=== PATIENT | female | born 1990 | race African-American/Black ===

== ENCOUNTER 2022-09-22 18:55 | Emergency (ER) | payer MEDICAID, OTHER ==
[~2022-09-22] VITALS: Ht 167.6 cm; Wt 85.0 kg
[2022-09-22 19:19] VITALS: BP 98/62
[2022-09-22] MEDS ORDERED: ACETAMINOPHEN 325MG TABLET PO ONE (22:00)
[2022-09-22] MEDS ORDERED: CYCL10TA21 MT (22:02)
[2022-09-22] MEDS ORDERED: IBUP-2029 MT (22:02)
== END 2022-09-22 22:19 | disposition home or self-care (01) ==
LOC: ER 18:55
DX: M54.50 Low back pain, unspecified (principal); V49.9XXA Car occupant (driver) (passenger) injured in unspecified traffic accident, initial encounter; Y93.89 Activity, other specified; Y92.89 Other specified places as the place of occurrence of the external cause; Y99.8 Other external cause status
CPT/HCPCS: 99283